=== PATIENT | female | born 1990 | race American Indian/Alaskan Native ===

== ENCOUNTER 2020-08-16 20:38 | Emergency (ER) | payer SELFPAY ==
[2020-08-16 21:18] VITALS: BP 107/55
[2020-08-16 22:00] LABS: Basophils # (Auto) 0.1 K/mm3 (0.0-0.1); Basophils % (Auto) 0.9 % (0.0-1.8); Eosinophils # (Auto) 0.1 K/mm3 (0.0-0.4); Eosinophils % (Auto) 1.1 % (0.0-4.3); Hemoglobin 10.8 gm/dl (10.1-14.3); Lymphocytes # (Auto) 2.7 K/mm3 (1.2-5.4); Lymphocytes % (Auto) 29.5 % (13.4-35.0); Mean Corpuscular HGB Conc 33 % (30-34); Mean Corpuscular Volume 76 fl (79-97); Monocytes # (Auto) 0.7 K/mm3 (0.0-0.8); Monocytes % (Auto) 7.7 % (0.0-7.3); Platelet Count 303 K/mm3 (140-440); Red Blood Count 4.37 M/mm3 (3.65-5.03); Red Cell Distribution Width 15.7 % (13.2-15.2)
[2020-08-17 01:39] LABS: Bilirubin,Urine NEG (Negative); Blood,Urine LG (Negative); Color,Urine Yellow (Yellow); Mucus,Urine 3+ /HPF; Sperm,Urine FEW /HPF (NP)
[2020-08-17 01:41] LABS: RBC,Urine > 182.0 /HPF (0.0-6.0)
[2020-08-17] MEDS ORDERED: ACETAMINOPHEN 500 MG TAB PO ONE (03:05)
[2020-08-17 03:31] LABS: Alanine Aminotransferase 37 units/L (7-56); Albumin 4.2 g/dL (3.9-5); Blood Urea Nitrogen 9 mg/dL (7-17); Calcium 9.4 mg/dL (8.4-10.2); Hemolysis Index 10
[2020-08-17 03:43] LABS: BUN/Creatinine Ratio 13
--- NOTE | 2020-08-17 05:36 | Ultrasound Report ---
US OB <= 14 weeks fetus INDICATION / CLINICAL INFORMATION: Pelvic pain, vaginal bleeding. COMPARISON: None available. FINDINGS: Cervix is closed measuring 2.6 cm. There is intrauterine gestational sac which measures 13.3 mm (6 weeks, 1 day). Yolk sac is visualized . No pole is identified. Ovaries are unremarkable. No adnexal lesion. No free fluid. IMPRESSION: 1. Intrauterine gestational sac measures 6 weeks, 1 day. Yolk sac is visualized, no pole is randi ntified. 2. No adnexal lesions are seen. No free fluid. Signer Name: Estuardo Kebede MD Signed: 08/17/2020 5:30 AM Workstation Name: [id number]
--- NOTE | 2020-08-17 05:48 | Emergency Department Report ---
ED Female HPI - General Chief complaint: Vaginal Bleeding Stated complaint: VAGINAL BLEEDING/6WKS Source: patient Mode of arrival: Ambulatory Limitations: No Limitations - History of Present Illness Initial comments: Patient is a A0 31-year-old -[place] female with no past medical history and who is approximately 6 weeks gestation who presents to the ED with complaint of acute onset pelvic pain with vaginal bleeding for the last 8 hours. Patient states that prior to arrival in the ED, she noticed large blood clots when she went to the bathroom to void urine. Patient states that she has been taking Tylenol as needed for pain which has helped control the pain and now states that her pain is resolved upon arrival in the ED although she still havin g vaginal bleeding. Patient denies fever, chills, nausea, vomiting, diarrhea, dysuria, urinary frequency and urgency, vaginal discharge, dyspareunia, low back pain, cough, chest pain or shortness of breath, heavy lifting or traumatic injury. MD Complaint: vaginal bleeding, pelvic pain -: Sudden, days(s) (2) Location: suprapubic, other (vagina) Radiation: non-radiating Severity: moderate Severity scale (0 -10): 6 Quality: cramping, sharp Consistency: intermittent Improves with: none Worsens with: none Are you Now?: Yes Associated Symptoms: vaginal bleeding, abdominal pain (suprapubic). denies: nausea/vomiting, fever/chills, headaches, loss of appetite, dysuria, hematuria, shortness of breath, syncope, weakness - Related Data Sexually active: Yes : 3 Para: 2 A: 0 Previous Rx's Medication Instructions Recorded Last Taken Type cephALEXin [Keflex] 500 mg PO Q8HR #30 cap 08/17/20 Unknown Rx Allergies Allergy/AdvReac Type Severity Reaction Status Date / Time No Known Allergies Allergy Unverified 08/16/20 21:19 ED Review of Systems ROS: Stated complaint: VAGINAL BLEEDING/6WKS Other details as noted in HPI Constitutional: denies: chills, fever Eyes: denies: eye pain, eye discharge, vision change ENT: denies: ear pain, throat pain Respiratory: denies: cough, shortness of breath, wheezing Cardiovascular: denies: chest pain, palpitations Endocrine: no symptoms reported Gastrointestinal: abdominal pain (suprapubic pain). denies: nausea, vomiting, diarrhea Genitourinary: abnormal menses (vaginal bleeding). denies: urgency, dysuria, discharge Musculoskeletal: denies: back pain, joint swelling, arthralgia Skin: denies: rash, lesions Neurological: denies: headache, weakness, paresthesias Psychiatric: denies: anxiety, depression Hematological/Lymphatic: denies: easy bleeding, easy bruising ED Past Medical Hx - Past Medical History Previous Medical History?: No - Surgical History Past Surgical History?: Yes Additional Surgical History: C-Sec - Social History Smoking Status: Current Every Day Smoker Substance Use Type: Marijuana - Medications Home Medications: Home Medications Medication Instructions Recorded Confirmed Last Taken Type cephALEXin [Keflex] 500 mg PO Q8HR #30 cap 08/17/20 Unknown Rx ED Physical Exam - General Limitations: No Limitations General appearance: alert, in no apparent distress - Head Head exam: Present: atraumatic, normocephalic, normal inspection - Eye Eye exam: Present: normal appearance, PERRL, EOMI Pupils: Present: normal accommodation - ENT ENT exam: Present: normal exam, normal orophraynx, mucous membranes moist, TM's normal bilaterally, normal external ear exam - Neck Neck exam: Present: normal inspection, full ROM - Respiratory Respiratory exam: Present: normal lung sounds bilaterally. Absent: respiratory distress, wheezes, rales, rhonchi, chest wall tenderness, accessory muscle use, decreased breath sounds, prolonged expiratory - Cardiovascular Cardiovascular Exam: Present: regular rate, normal rhythm, normal heart sounds. Absent: systolic murmur, diastolic murmur, rubs, gallop - GI/Abdominal GI/Abdominal exam: Present: soft, tenderness (Palpable mild suprapubic tenderness), normal bowel sounds. Absent: guarding, rebound, hyperactive bowel sounds, organomegaly, mass - Bi-manual exam: Present: other (Pelvic exam deferred, patient prefers her own Sana-Spice Mixer Physician) - Extremities Exam Extremities exam: Present: normal inspection, full ROM, normal capillary refill - Back Exam Back exam: Present: normal inspection, full ROM. Absent: tenderness, CVA tenderness (R), CVA tenderness (L), muscle spasm, paraspinal tenderness, vertebral tenderness - Neurological Exam Neurological exam: Present: alert, oriented X3, CN II-XII intact, normal gait, r eflexes normal - Psychiatric Psychiatric exam: Present: normal affect, normal mood - Skin Skin exam: Present: warm, dry, intact, normal color. Absent: rash ED Course Vital Signs 08/16/20 08/17/20 21:15 06:12 Temperature 98.8 F 98.7 F Pulse Rate 94 H 94 H Respiratory 18 18 Rate Blood Pressure 107/55 O2 Sat by Pulse 99 99 Oximetry ED Medical Decision Making - Lab Data Result diagrams: 08/16/20 21:23 08/17/20 03:04 - Radiology Data Radiology results: report reviewed, image reviewed Findings [facility] [address] [place] [address] Ultrasound Report Signed Patient: LALI SMITH MR#: [id number] : 1990 Acct:[id number] Age/Sex: 30 / F ADM Date: 08/16/20 Loc: ED Attending Dr: Ordering Physician: MARCOS RENEE Date of Service: 08/17/20 Procedure(s): US OB <= 14 weeks fetus Accession Number(s): [id number] cc: MARCOS RENEE US OB <= 14 weeks fetus INDICATION / CLINICAL INFORMATION: Pelvic pain, vaginal bleeding. COMPARISON: None available. FINDINGS: Cervix is closed measuring 2.6 cm. There is intrauterine gestational sac which measures 13.3 mm (6 weeks, 1 day). Yolk sac is visualized. No pole is identified. Ovaries are unremarkable. No adnexal lesion. No free fluid. IMPRESSION: 1. Intrauterine gestational sac measures 6 weeks, 1 day. Yolk sac is visualized, no pole is identified. 2. No adnexal lesions are seen. No free fluid. Signer Name: Estuardo Kebede MD Signed: 08/17/2020 5:30 AM Workstation Name: [id number] Transcribed By: [place] Dictated By: Estuardo Kebede MD Electronically Authenticated By: Estuardo Kebede MD Signed Date/Time: 08/17/20529 DD/ 8 TD/TT: - Medical Decision Making This is a A0 31-year-old -[place] female with no past medical history and who is approximately 6 weeks gestation who presents to the ED with complaint of acute onset pelvic pain with vaginal bleeding for the last 8 hours. Patient states that prior to arrival in the ED, she noticed large blood clots when she went to the bathroom to void urine. Patient states that she has been taking Tylenol as needed for pain which has helped control the pain and now states that her pain is resolved upon arrival in the ED although she still having vaginal bleeding. In the ED, patient is alert and oriented x3 and is not in distress with normal vital signs. Lab test results were reviewed and showed hCG quant of 2729.0, and mild urinary tract infection. The rest of the lab test results were nonactionable. The transvaginal ultrasound showed intrauterine gestational sac measures 6 weeks, 1 day. Yolk sac is visualized, no pole is identified. No adnexal lesions are seen. No free fluid. On reevaluation, patient still has not had any pelvic pain while in the ED. Patient declined pelvic exam stating that she prefers her PRODUCT DEVELOPMENT MANAGER evaluation. Patient was discharged home and advised to continue taking Tylenol as needed for pain, and to maintain a complete pelvic rest and return to the ED or to help PRODUCT DEVELOPMENT MANAGER physician within 48 hours for serial hCG quant studies to characterize the viability of the . Patient was otherwise advised to return to the ED immediately if symptoms get worse. - Differential Diagnosis Threatened miscarriage; UTI; Subchorionic bleed; Ovarian cyst Critical care attestation.: If time is entered above; I have spent that time in minutes in the direct care of this critically ill patient, excluding procedure time. ED Disposition Clinical Impression: Threatened miscarriage in early , Abdominal pain during in first trimester, Acute urinary tract infection Disposition: TO HOME OR SELFCARE Is pt being admited?: No Does the pt Need Aspirin: No Condition: Stable Instructions: Threatened Miscarriage (ED), Urinary Tract Infection in Women (ED), Abdominal Pain in (ED) Additional Instructions: Maintain a complete pelvic rest, follow-up with your PRODUCT DEVELOPMENT MANAGER physician in 2 to 3 days for reevaluation. Return to the ED in 2 days or 48 hours for serial hCG quant repeat to characterize the viability of your . Take Tylenol as needed for pain. Prescriptions: cephALEXin [Keflex] 500 mg PO Q8HR #30 cap Referrals: TASHA RIVERA MD [Staff Physician] - 3-5 Days Forms: Work/School Release Form(ED) Time of Disposition: 05:47 Print Language: JAPANESE
== END 2020-08-17 06:12 | disposition home or self-care (01) ==
LOC: ED 20:38
DX: O20.0 Threatened abortion (principal); O23.41 Unspecified infection of urinary tract in pregnancy, first trimester; Z3A.01 Less than 8 weeks gestation of pregnancy
CPT/HCPCS: 36415; 76801; 80053; 81001; 84702; 84703; 85025; 86900; 86901; 87086

== ENCOUNTER 2020-12-11 21:51 | Emergency (ER) | payer SELFPAY ==
--- NOTE | 2020-12-11 22:02 | Emergency Department Report ---
Blank Doc - Documentation Documentation: 30-year-old female that presents with generalized body aches, headaches, subje ctive fever and chills, abdominal pain. Patient denies any vaginal bleeding. Patient states she is about 12 weeks . Exam: Neuro exam is unremarkable. No facial drooping or one-sided weakness. PERRLA. 1- This initial assessment/diagnostic orders/clinical plan/ treatment(s) is/are subject to change based on pt's health status, clinical progression and re- assessment by fellow clinical providers in the ED. Further treatment and workup at subsequent clinical provers discretion. Patient/guardians urged not to elope from ED as their condition may be serious if not clinically assessed and managed. 2-labs 3-UA 4-OB ultrasound
[2020-12-11 22:40] VITALS: BP 106/64
[2020-12-11 23:32] LABS: Alanine Aminotransferase 10 units/L (7-56); Albumin 3.7 g/dL (3.9-5); Blood Urea Nitrogen 10 mg/dL (7-17); Calcium 9.3 mg/dL (8.4-10.2); Hemolysis Index 1
[2020-12-11 23:34] LABS: Basophils % (Auto) 0.5 % (0.0-1.8); Eosinophils # (Auto) 0.1 K/mm3 (0.0-0.4); Eosinophils % (Auto) 1.3 % (0.0-4.3); Hematocrit 32.4 % (30.3-42.9); Hemoglobin 10.8 gm/dl (10.1-14.3); Lymphocytes # (Auto) 1.9 K/mm3 (1.2-5.4); Lymphocytes % (Auto) 22.8 % (13.4-35.0); Mean Corpuscular HGB Conc 33 % (30-34); Mean Corpuscular Volume 75 fl (79-97); Monocytes # (Auto) 0.7 K/mm3 (0.0-0.8); Monocytes % (Auto) 8.7 % (0.0-7.3); Platelet Count 326 K/mm3 (140-440); Red Blood Count 4.35 M/mm3 (3.65-5.03); Red Cell Distribution Width 16.5 % (13.2-15.2)
[2020-12-11 23:44] LABS: BUN/Creatinine Ratio 20
[2020-12-12] MEDS ORDERED: ACETAMINOPHEN 500 MG TAB PO ONE (01:06)
--- NOTE | 2020-12-12 01:10 | Emergency Department Report ---
HPI - General Chief Complaint: Abdominal Pain Time Seen by Provider: 12/11/20 22:00 - HPI HPI: Room 43 The patient is a 30-year-old female present with a chief complaint of headache weakness and abdominal cramping. Patient states for the past 4 days she has had a left frontal parietal headache. Patient states sometimes Naprosyn or BC powder improves the pain but it always returns. Patient states she just felt weak and had body aches. Patient admits to nausea but denies vomiting or diarrhea. The patient states she also developed lower abdominal cramping but denies vaginal bleeding. The patient is 12 weeks gestational age and states she has not yet had care for this . Patient denies dysuria or hematuria. ED Past Medical Hx - Past Medical History Previous Medical History?: Yes Hx Asthma: Yes - Surgical History Past Surgical History?: Yes Additional Surgical History: C-Sec x1 - Family History Family history: no significant - Social History Smoking Status: Never Smoker Substance Use Type: Marijuana - Medications Home Medications: Home Medications Medication Instructions Recorded Confirmed Last Taken Type cephALEXin [Keflex] 500 mg PO Q8HR #30 cap 08/17/20 Unknown Rx Cyclobenzaprine [Flexeril] 10 mg PO TID PRN #10 tablet 12/12/20 Unknown Rx Metoclopramide [Reglan] 10 mg PO TID #20 tab 12/12/20 Unknown Rx ED Review of Systems ROS: Stated complaint: 12WKS ;FEVER;HEADACHE Other details as noted in HPI Constitutional: fever Eyes: denies: eye pain ENT: denies: throat pain Respiratory: no symptoms reported Cardiovascular: denies: chest pain Endocrine: no symptoms reported Gastrointestinal: abdominal pain, nausea. denies: vomiting, diarrhea Genitourinary: denies: dysuria, hematuria, abnormal menses Musculoskeletal: denies: back pain Neurological: headache Physical Exam - Physical Exam Vital Signs: Vital Signs 12/11/20 21:58 Temperature 98.1 F Pulse Rate 86 Respiratory 16 Rate Blood Pressure 106/64 O2 Sat by Pulse 100 Oximetry Physical Exam: GENERAL: The patient is well-developed well-nourished female lying on stretcher not appearing to be in acute distress. [] HEENT: Normocephalic. Atraumatic. Extraocular motions are intact. Patient has moist mucous membranes. NECK: Supple. No meningitic signs are noted. No nuchal rigidity CHEST/LUNGS: Clear to auscultation. There is no respiratory distress noted. HEART/CARDIOVASCULAR: Regular. There is no tachycardia. There is no gallop rub or murmur. ABDOMEN: Abdomen is soft, with mild discomfort to palpation in the right lower quadrant, suprapubic region and left lower quadrant. There is no rebound or guarding. Patient has normal bowel sounds. There is no abdominal distention. SKIN: There is no rash. There is no edema. There is no diaphoresis. NEURO: The patient is awake, alert, and oriented. The patient is cooperative. The patient has no focal neurologic deficits. The patient has normal speech. Cranial nerves II through XII grossly intact MUSCULOSKELETAL: There is no evidence of acute injury. ED Course Vital Signs 12/11/20 21:58 Temperature 98.1 F Pulse Rate 86 Respiratory 16 Rate Blood Pressure 106/64 O2 Sat by Pulse 100 Oximetry ED Medical Decision Making - Lab Data Result diagrams: 12/11/20 22:45 12/11/20 22:45 Laboratory Tests 12/11/20 12/11/20 12/11/20 22:45 22:45 22:45 WBC 8.4 RBC 4.35 Hgb 10.8 Hct 32.4 MCV 75 L MCH 25 L MCHC 33 RDW 16.5 H Plt Count 326 Lymph % (Auto) 22.8 [place] % (Auto) 8.7 H Eos % (Auto) 1.3 Baso % (Auto) 0.5 Lymph # (Auto) 1.9 [place] # (Auto) 0.7 Eos # (Auto) 0.1 Baso # (Auto) 0.0 Seg Neutrophils % 66.7 Seg Neutrophils # 5.6 Sodium 132 L Potassium 4.2 Chloride 100.5 Carbon Dioxide 22 Anion Gap 14 BUN 10 Creatinine 0.5 L Estimated GFR > 60 BUN/Creatinine Ratio 20 Glucose 82 Calcium 9.3 Total Bilirubin < 0.20 AST 15 ALT 10 Alkaline Phosphatase 43 Total Protein 6.1 L Albumin 3.7 L Albumin/Globulin Ratio 1.5 Lipase 20 HCG, Quant 67499 H Urine Color Urine Turbidity Urine pH Ur Specific [place] Urine Protein Urine Glucose (UA) Urine Ketones Urine Blood Urine Nitrite Urine Bilirubin Urine Urobilinogen Ur Leukocyte Esterase Urine WBC (Auto) Urine RBC (Auto) U Epithel Cells (Auto) Urine Mucus 12/11/20 Unknown WBC RBC Hgb Hct MCV MCH MCHC RDW Plt Count Lymph % (Auto) [place] % (Auto) Eos % (Auto) Baso % (Auto) Lymph # (Auto) [place] # (Auto) Eos # (Auto) Baso # (Auto) Seg Neutrophils % Seg Neutrophils # Sodium Potassium Chloride Carbon Dioxide Anion Gap BUN Creatinine Estimated GFR BUN/Creatinine Ratio Glucose Calcium Total Bilirubin AST ALT Alkaline Phosphatase Total Protein Albumin Albumin/Globulin Ratio Lipase HCG, Quant Urine Color Straw Urine Turbidity Clear Urine pH 6.0 Ur Specific [place] 1.012 Urine Protein <15 mg/dl Urine Glucose (UA) Neg Urine Ketones Neg Urine Blood Neg Urine Nitrite Neg Urine Bilirubin Neg Urine Urobilinogen < 2.0 Ur Leukocyte Esterase Neg Urine WBC (Auto) 1.0 Urine RBC (Auto) 1.0 U Epithel Cells (Auto) < 1.0 Urine Mucus Few - Radiology Data Radiology results: report reviewed (Pelvic ultrasound, CT head), image reviewed (Pelvic ultrasound, CT head) [address] [address] Ultrasound Report Signed Patient: LALI SOLER MR#: [id number] : 1990 Acct:[id number] Age/Sex: 30 / F ADM Date: 12/11/20 Loc: ED Attending Dr: Ordering Physician: MICHELLE NEWBERRY NP Date of Service: 12/11/20 Procedure(s): US OB <= 14 weeks fetus Accession Number(s): [id number] cc: MICHELLE NEWBERRY NP ULTRASOUND OBSTETRIC INDICATION / CLINICAL INFORMATION: pelvic/abdominal pain. Clinical Gestational Age (GA) in weeks, days: 12, 2 TECHNIQUE: Transabdominal. COMPARISON: Ultrasound dated 08/17/20 FINDINGS: GESTATIONAL SAC: Well-defined oval shape and intrauterine in location. YOLK SAC: Not visualized. EMBRYO/FETUS: No significant abnormality. - [place]-Rump Length = 5.9 cm = 12, 3 weeks, days - Heart Rate, beats per minute (if present) = 163 Small nabothian cyst. ADNEXA: No significant abnormality. FREE FLUID: None. ADDITIONAL FINDINGS: None. IMPRESSION: 1. Single, living intrauterine with estimated sonographic age of 12, 3 weeks, days. Signer Name: Lacho Moore MD Signed: 12/12/2020 1:17 AM Workstation Name: [id number] Transcribed By: DT Dictated By: David Moore MD Electronically Authenticated By: David Moore MD Signed Date/Time: 12/12/20116 DD/ 9 TD/TT: [facility] [address] [place] [address] Cat Scan Report Signed Patient: LALI SOLER MR#: [id number] : 1990 Acct:[id number] Age/Sex: 30 / F ADM Date: 12/11/20 Loc: ED Attending Dr: Ordering Physician: ROBBY GARCIA MD Date of Service: 12/12/20 Procedure(s): CT head/brain wo con Accession Number(s): [id number] cc: ROBBY GARCIA MD CT HEAD WITHOUT CONTRAST INDICATION / CLINICAL INFORMATION: Left frontal / parietal headache. TECHNIQUE: All CT scans at this location are performed using CT dose reduction for ALARA by means of automated exposure control. COMPARISON: None available. FINDINGS: HEMORRHAGE: None. EXTRA-AXIAL SPACES: Normal in size and morphology for the patient's age. VENTRICULAR SYSTEM: Normal in size and morphology for the patient's age. CEREBRAL PARENCHYMA: No significant abnormality. No acute territorial infarct. MIDLINE SHIFT / HERNIATION: None. CEREBELLUM / BRAINSTEM: No significant abnormality. ORBITS: Normal as visualized. SOFT TISSUES: No significant abnormality. SKULL: No significant abnormality. PARANASAL SINUSES / MASTOID AIR CELLS: Normal as visualized. ADDITIONAL FINDINGS: None. IMPRESSION: 1. No acute intracranial abnormality. Signer Name: Lacho Moore MD Signed: 12/12/2020 3:28 AM Workstation Name: [id number] Transcribed By: DT Dictated By: David Moore MD Electronically Authenticated By: David Moore MD Signed Date/Time: 12/12/20327 DD/ 0 TD/TT: - Differential Diagnosis Headache, intracranial mass, ICH, round ligament pain, UTI Critical care attestation.: If time is entered above; I have spent that time in minutes in the direct care of this critically ill patient, excluding procedure time. ED Disposition Clinical Impression: Headache, Abdominal pain, Body aches Disposition: DC-01 TO HOME OR SELFCARE Is pt being admited?: No Does the pt Need Aspirin: No Condition: Stable Instructions: Abdominal Pain (ED) Additional Instructions: Return to the emergency department should you develop worsening symptoms, inability to tolerate food or liquids, high fever or any other concerns Prescriptions: Cyclobenzaprine [Flexeril] 10 mg PO TID PRN #10 tablet PRN Reason: Muscle Spasm Metoclopramide [Reglan] 10 mg PO TID #20 tab Referrals: [facility] [Provider Group] - 3-5 Days WALE ANDREA JR, MD [Staff Physician] - 3-5 Days (Dr. Andrea is an DECORATOR INSPECTOR. Please follow-up with him for further evaluation) Time of Disposition: 04:25
--- NOTE | 2020-12-12 01:21 | Ultrasound Report ---
ULTRASOUND OBSTETRIC INDICATION / CLINICAL INFORMATION: pelvic/abdominal pain. Clinical Gestational Age (GA) in weeks, days: 12, 2 TECHNIQUE: Transabdominal. COMPARISON: Ultrasound dated 08/17/20 FINDINGS: GESTATIONAL SAC: Well-defined oval shape and intrauterine in location. YOLK SAC: Not visualized. EMBRYO/FETUS: No significant abnormality. - [place]-Rump Length = 5.9 cm = 12, 3 weeks, days - Heart Rate, beats per minute (if present) = 163 Small nabothian cyst. ADNEXA: No significant abnormality. FREE FLUID: None. ADDITIONAL FINDINGS: None. IMPRESSION: 1. Single, living intrauterine with estimated sonographic age of 12, 3 weeks, days. Signer Name: Lacho Moore MD Signed: 12/12/2020 1:17 AM Workstation Name: [id number]
--- NOTE | 2020-12-12 03:32 | Cat Scan Report ---
CT HEAD WITHOUT CONTRAST INDICATION / CLINICAL INFORMATION: Left frontal / parietal headache. TECHNIQUE: All CT scans at this location are performed using CT dose reduction for ALARA by means of automated exposure control. COMPARISON: None available. FINDINGS: HEMORRHAGE: None. EXTRA-AXIAL SPACES: Normal in size and morphology for the patient's age. VENTRICULAR SYSTEM: Normal in size and morphology for the patient's age. CEREBRAL PARENCHYMA: No significant abnormality. No acute territorial infarct. MIDLINE SHIFT / HERNIATION: None. CEREBELLUM / BRAINSTEM: No significant abnormality. ORBITS: Normal as visualized. SOFT TISSUES: No significant abnormality. SKULL: No significant abnormality. PARANASAL SINUSES / MASTOID AIR CELLS: Normal as visualized. ADDITIONAL FINDINGS: None. IMPRESSION: 1. No acute intracranial abnormality. Signer Name: Lacho Moore MD Signed: 12/12/2020 3:28 AM Workstation Name: [id number]
[2020-12-12 03:54] LABS: Bilirubin,Urine NEG (Negative); Blood,Urine NEG (Negative); Color,Urine Straw (Yellow); Mucus,Urine FEW /HPF; Protein,Urine <15 mg/dL mg/dL (Negative); Urobilinogen,Urine < 2.0 mg/dL (<2.0)
== END 2020-12-12 05:00 | disposition home or self-care (01) ==
LOC: ED 21:51
DX: O26.891 Other specified pregnancy related conditions, first trimester (principal); O99.511 Diseases of the respiratory system complicating pregnancy, first trimester; R10.9 Unspecified abdominal pain; R51.9 Headache, unspecified; J45.909 Unspecified asthma, uncomplicated; F12.90 Cannabis use, unspecified, uncomplicated; Z79.899 Other long term (current) drug therapy; Z98.890 Other specified postprocedural states; Z3A.12 12 weeks gestation of pregnancy
CPT/HCPCS: 36415; 70450; 76801; 80053; 81001; 83690; 84702; 85025

== ENCOUNTER 2022-02-16 18:16 | Emergency (ER) | payer SELFPAY | END 2022-02-16 19:32 | disposition left against medical advice (07) | LOC: ED 18:16 | DX: M79.18 Myalgia, other site (principal); E11.9 Type 2 diabetes mellitus without complications; Z53.21 Procedure and treatment not carried out due to patient leaving prior to being seen by health care provider ==